=== PATIENT | female | born 2000 | race African-American/Black ===

== ENCOUNTER 2023-11-17 12:31 | Inpatient (IN) | payer BC ==
[2023-11-17 13:32] VITALS: BMI 16.0
[2023-11-17] MEDS ORDERED: BENZOCAINE/MENTHOL (CHLORASEPTIC ) LOZENGE MM PRN (14:20)
[2023-11-17] MEDS ORDERED: LOPERAMIDE HCL 2 MG CAPSULE PO PRN (14:20)
[2023-11-17] MEDS ORDERED: IBUPROFEN 400 MG TABLET (FP) PO PRN (14:20)
[2023-11-17] MEDS ORDERED: MAGNESIUM HYDROX 2400MG/30ML ORAL SUSPENSION 30 ML CUP PO PRN (14:20)
[2023-11-17] MEDS ORDERED: BENZONATATE 200 MG CAPSULE PO PRN (14:20)
[2023-11-17] MEDS ORDERED: guaiFENesin 600 MG TABLET.ER (FP) PO PRN (14:20)
[2023-11-17] MEDS ORDERED: MAG HYDROX/AL HYDROX/SIMETH 30 ML UNIT-DOSE CUP PO PRN (14:20)
[2023-11-17] MEDS ORDERED: POLYETHYLENE GLYCOL (HEALTHYLAX) 3350 17 GM PACKET PO PRN (14:20)
[2023-11-17] MEDS: IBUPROFEN 600 MG TABLET (FP) PO PRN (21:28)
[2023-11-17] MEDS: MELATONIN 5 MG TABLETS PO SCH (21:28)
[2023-11-17] MEDS: THIAMINE 100 MG TABLET PO SCH (21:28)
[2023-11-18] MEDS: ACETAMINOPHEN 325 MG TABLET (FP) PO PRN (07:23)
[2023-11-18 09:28] VITALS: BP 112/65; PULSE 81; RESP 17; TEMP 97.7
[2023-11-18] MEDS: PRENATAL VITAMINS W/ FOLIC ACID TABLET (FP) PO SCH (10:08)
[2023-11-18] MEDS: hydrOXYzine PAMOATE 25 MG CAPSULE (FP) PO PRN (10:08)
[2023-11-18 12:00] LABS: EPI CELLS 29 /uL (0-25.1); HYALINE CASTS 1 /uL (0-3.1); PH,URINE 6.5 (5.0-8.0); URINE APPEARANCE CLEAR; URINE BACTERIA 618 /uL (0-1359); URINE BILIRUBIN NEGATIVE (NEGATIVE); URINE COLOR YELLOW; URINE GLUCOSE (UA) NEGATIVE (NEGATIVE); URINE KETONE NEGATIVE (NEGATIVE); URINE LEUK ESTERASE NEGATIVE (NEGATIVE); URINE NITRITE NEGATIVE (NEGATIVE); URINE PROTEIN TRACE (NEGATIVE); URINE RBC 11 /uL (0-23.9); URINE UROBILINOGEN 0.2 mg/dL (0.2-1.0); URINE WBC 29 /uL (0-25.8)
[2023-11-18 12:01] LABS: HEMATOCRIT 34.5 % (32.4-45.2); HEMOGLOBIN 11.2 GM/dL (10.7-15.3); MCH 27.7 pg (25.7-33.7); MCHC 32.6 g/dl (32.0-36.0); MEAN CELL VOLUME 84.9 fl (80-96); MEAN PLT VOLUME 8.3 fl (7.5-11.1); PLATELET COUNT 257 10^3/uL (134-434); RBC 4.06 M/mm3 (3.60-5.2); RDW 17.3 % (11.6-15.6); WHITE BLOOD COUNT 4.2 K/mm3 (4.0-10.0)
[2023-11-18 14:00] LABS: ALBUMIN 3.9 g/dl (3.4-5.0); CALCIUM 9.5 mg/dL (8.5-10.1)
[2023-11-18 14:04] LABS: CREATININE 0.8 mg/dL (0.55-1.3)
[2023-11-18 14:05] LABS: BILIRUBIN,TOTAL 1.3 mg/dL (0.2-1); TOT PROT 7.4 g/dl (6.4-8.2)
== END 2023-11-18 11:03 | disposition home or self-care (01) | DRG 775 ==
LOC: YASAS 12:31 → Y3N 14:40
PROVIDERS: ADMIT Allergy & Immunology; ATTEND Surgery
PROC: HZ2ZZZZ Detoxification Services for Substance Abuse Treatment (ICD-10-PCS; principal; 2023-11-17)
DX: F10.10 Alcohol abuse, uncomplicated (principal); F12.20 Cannabis dependence, uncomplicated; F17.210 Nicotine dependence, cigarettes, uncomplicated
CPT/HCPCS: 36415; 80053; 80305; 80307; 81003; 81025; 85027; 86780; 93005; 93010